=== PATIENT | male | born 2000 | race Caucasian/White ===

== ENCOUNTER 2021-09-16 14:54 | Emergency (ER) | payer MEDICAID, SELFPAY ==
[2021-09-16 14:55] VITALS: BP 170/82; PULSE 85; RESP 16; TEMP 36.1; O2SAT 97; BMI 28.8
--- NOTE | 2021-09-16 15:28 | EDS_ITS ---
HPI HPI - Psych History of Present Illness Chief Complaint: Anxiety Narrative Narrative: 20-year-old male presenting with anxiety. He has a history of anxiety in the past. He was previously on Abilify, Prozac, guanfacine. He states he has not had these in a month and a half due to a falling out with his family and he came to [place] to live with his friend. He has not been able to get his medications from his home and states that they had a falling out in which he does not want to go back there. He states he called the counseling center who then transferred him to a psychiatric physician that told him he would need to go to the emergency room to have his medications filled. He is not homicidal or suicidal. He does admit to anxiety. [facility] Medical History Anxiety Depression Home Medications aripiprazole [Abilify] 20 mg PO QHS 09/16/21 [History Last Taken Unknown] aripiprazole [Abilify] 20 mg PO QHS #30 tab 09/16/21 [Rx Last Taken Unknown] fluoxetine 5 mg PO DAILY #30 cap 09/16/21 [Rx Last Taken Unknown] fluoxetine [Prozac] 5 mg PO DAILY 09/16/21 [History Last Taken Unknown] guanfacine 09/16/21 [History Last Taken Unknown] guanfacine 1 mg PO DAILY #30 tab 09/16/21 [Rx Last Taken Unknown] Allergy/AdvReac Type Severity Reaction Status Date / Time No Known Allergies Allergy Verified 09/16/21 14:58 Social History Smoking Status: Unknown if ever smoked ROS ROS ED Constitutional Constitutional ED: Denies chills or fever(s) Eyes Eyes: Denies blurry vision or change in vision ENT ENT ED: Denies rhinorrhea or sore throat Cardiovascular Cardiovascular: Denies chest pain or palpitations Respiratory/Chest Respiratory/Chest: Denies cough, dyspnea or sputum Gastrointestinal Gastrointestinal: Denies abdominal pain or nausea Genitourinary Genitourinary ED: Denies dysuria or hematuria Musculoskeletal Musculoskeletal: Denies arthralgias or myalgias Integumentary Denies Abrasions or rash Neurologic Neurologic: Denies headache(s) Psychiatric Psychiatric: Reports anxiety; Denies suicidal ideation or suicidal thoughts EXAM Physical Exam Const Vital Signs: 09/16/21 14:55 Temperature 96.9 F L Temperature Source Temporal Pulse Rate 85 Respiratory Rate 16 Blood Pressure 170/82 H Blood Pressure Mean 111 Pulse Ox 97 Oxygen Delivery Method Room Air Positive well nourished General Appearance ED: NAD; Negative for pallor HEENT Reports moist mucous membranes normocephalic and atraumatic Eyes PERRL and EOMs intact bilaterally Cardio Rate: regular rate Rhythm: regular rhythm Extremity normal to inspection Psych Appearance: grossly normal and appropriate Speech: normal speech Skin General Skin Exam: Negative for jaundice or pallor Rashes: no rashes MDM MDM MDM Narrative Medical decision making narrative: Patient presenting with mild anxiety and d esire for refill of his previous medications that he was on. He states he was referred to the ER to start these medications by the counseling center. He is not suicidal homicidal. I did get clinical social work aide involved in making confirm his prescriptions. They stated that the counseling center could not get him prescriptions in a timely manner and that it could need to be established first. After confirming his previous prescription I did refill him. He is to follow- up with his psychiatrist in [place] next month. I did give him a 30-day supply. He is given return precautions. Impression: 1. Anxiety 2 medication refill Discharge Plan Triage Chief Complaint: Anxiety ED Provider: Bakari Juarez Dx/Rx/DC Orders Prescriptions: New aripiprazole [Abilify] 20 mg tablet 20 mg PO QHS Qty: 30 RF: 0 guanfacine 1 mg tablet 1 mg PO DAILY Qty: 30 RF: 0 fluoxetine 10 mg capsule 5 mg PO DAILY Qty: 30 RF: 0 No Action fluoxetine [Prozac] 10 mg Capsule 5 mg PO DAILY RF: 0 aripiprazole [Abilify] 20 mg Tablet 20 mg PO QHS RF: 0 guanfacine RF: 0 Primary Care Provider: Care Physician,No Primary Referrals: Care Physician,No Primary [Primary Care Provider] - Disposition Disposition: Home, Self Care
--- NOTE | 2021-09-16 15:37 | CM.ED ---
SOCIAL WORK Referral Source: Dr. Juarez Reason for Consult: Anxiety-requesting medications Patient presents to ER reporting spoke with [facility]. Patient states has been off medications and needs them refilled. Patient states has appointment with [facility] on October 10 with Tristan Acuna. Patient states in the process of getting set up with primary care as well due to being new to this area. Patient states was previously on Abilify 20mg, Prozac 5mg, and guanfacine. Patient reports prior pharmacy was [facility] in [place], [place]. Patient does not remember dosage for guanfacine. This worker called [facility] to confirm dosages for medications and updated Dr. Juarez. Dr. Juarez reports will fill patient's prescriptions for 1 month until follow up with [facility]. Plan: Home with intake appointments already scheduled with [facility] Tico Martin MSW, BLOOD BANK MANAGER
== END 2021-09-16 16:12 | disposition home or self-care (01) ==
PROVIDERS: Emergency Provider Student in an Organized Health Care Education/Training Program
DX: F41.9 Anxiety disorder, unspecified (principal); Z76.0 Encounter for issue of repeat prescription; F32.9 Major depressive disorder, single episode, unspecified; Z79.899 Other long term (current) drug therapy
CPT/HCPCS: 99282

== ENCOUNTER 2023-09-29 18:14 | Emergency (ER) | payer MEDICAID, SELFPAY ==
[2023-09-29 18:15] VITALS: BP 153/107; PULSE 100; RESP 17; TEMP 36.4; O2SAT 98; BMI 34.4
--- NOTE | 2023-09-29 19:03 | ED.VIS.DYS ---
HPI History of Present Illness Chief Complaint: Cold Sx [facility] Medical History Anxiety Depression Home Medications aripiprazole 20 mg tablet (Abilify) 20 mg PO QHS 09/16/21 [History Last Taken Unknown] aripiprazole 20 mg tablet (Abilify) 20 mg PO QHS #30 tabs 09/16/21 [Rx Last Taken Unknown] fluoxetine 10 mg capsule 5 mg (1/2 x 10 mg) PO DAILY #30 caps 09/16/21 [Rx Last Taken Unknown] fluoxetine 10 mg capsule (Prozac) 5 mg PO DAILY 09/16/21 [History Last Taken Unknown] guanfacine 09/16/21 [History Last Taken Unknown] guanfacine 1 mg tablet 1 mg PO DAILY #30 tabs 09/16/21 [Rx Last Taken Unknown] amoxicillin 875 mg-potassium clavulanate 125 mg tablet 1 tab PO BID #14 tabs 09/29/23 [Rx Last Taken Unknown] Allergy/AdvReac Type Severity Reaction Status Date / Time No Known Allergies Allergy Verified 09/29/23 18:15 Social History Smoking Status: Unknown if ever smoked EXAM Physical Exam Const Vital Signs: 09/29/23 18:15 Temperature 97.5 F L Temperature Source Temporal Pulse Rate 100 Respiratory Rate 17 Blood Pressure 153/107 H Blood Pressure Mean 122 Pulse Ox 98 Oxygen Delivery Method Room Air MDM MDM MDM Narrative Medical decision making narrative: HISTORY OF PRESENT ILLNESS: 22-year-old male here with concern for cold symptoms. No shortness of breath, achy runny nose and cough. Notes his significant other recently was diagnosed with COVID. The patient denies recent surgery in the last 4 weeks or immobilization in the last 3 days, denies previous diagnosis of DVT or PE, hemoptysis, unilateral leg swelling or malignancy with treatment the last 6 months or palliative. No estrogen use noted. REVIEW OF SYSTEMS: Pertinent positives: Myalgias, shortness of breath Pertinent negatives: Chest pain PHYSICAL EXAM: Nursing triage notes reviewed, Vital signs reviewed Constitutional: please see mdm HENT: MMM Eyes: Pupils equal round and reactive to light, Extraocular muscles intact Neck: No stridor, no JVD, full neck ROM Lungs: Clear to auscultation, No wheezing or rales. No increased work of breathing, no conversational dyspnea, no accessory muscle use, no nasal flaring. No respiratory distress noted Heart: Regular rate and rhythm, No murmurs, No rubs and No gallops, 2+ distal pulses (radial, femoral, posterior tibial) in all extremities Abdomen: Soft, there is no tenderness, rigidity, rebound or guarding, no obvious peritoneal signs, no palpable pulsatile abdominal masses, no auscultated abdominal bruit : No CVAT Extremities: No edema Neuro: No focal neurological deficits, cranial nerves II through XII intact, 5/5 strength in all extremities. Intact sensation to light touch in all extremities, 2+ reflexes bilateral patella tendons. Normal gait. No ataxia. Skin: No rash or lesions noted MEDICAL DECISION MAKING: Chief Complaint: Shortness breath, cough, viral symptoms External records reviewed: No recent advanced imaging of the chest noted Factors affecting care: none Social determinants of health: none History obtained from others: none Consults: none MDM Narrative: She was hemodynamically stable, afebrile, nontoxic-appearing. Exam without focal abnormalities. I considered the following differential diagnosis: COVID, flu, pneumonia ALL IMAGES (IF OBTAINED) HAVE BEEN PERSONALLY REVIEWED AND INTERPRETED BY MYSELF. I have personally reviewed the patient's chest x-ray. Chest x-ray bilateral atelectasis versus infiltrate. Will prescribe antibiotics. The plan is to give antibiotics for community acquired pneumonia. COVID and flu are negative. The patient and/or family, caregivers express understanding. The patient and/or family, caregivers agrees with the plan. Shared decision making: I will have a discussion with the patient and or visitors regarding risk/benefits of further testing or admission. They will be made aware of of the risk/benefits inherent in this decision they will be given the opportunity to voice understanding. Total critical care time today provided was at least 0 minutes. This excludes separately billable procedures. Critical care time (if documented) is secondary to the patient having high probability of clinically significant/life threatening deterioration in the patient's condition which required my urgent intervention. Impression: 1. Community-acquired pneumonia Dispo: discharge home Radiography Diagnostic Testing: Clinical Impression(s) from Imaging Studies Chest X-Ray 09/29/23 19:12 IMPRESSION: Incomplete expansion of lungs. Possible mild atelectasis or infiltrates of the lung bases. Electronically Signed: Jose West MD at 20:01 EST , Discharge Plan Triage Chief Complaint: Cold Sx ED Provider: Kt Mcclelland Dx/Rx/DC Orders Instructions: Treating Pneumonia Prescriptions: New amoxicillin-pot clavulanate 875-125 mg tablet 1 tab PO BID Qty: 14 0RF No Action fluoxetine [Prozac] 10 mg Capsule 5 mg PO DAILY aripiprazole [Abilify] 20 mg Tablet 20 mg PO QHS guanfacine aripiprazole [Abilify] 20 mg tablet 20 mg PO QHS Qty: 30 0RF guanfacine 1 mg tablet 1 mg PO DAILY Qty: 30 0RF fluoxetine 10 mg capsule 5 mg PO DAILY Qty: 30 0RF Primary Care Provider: Care Physician,No Primary Referrals: Lebron Maldonado MD [Med Staff - Wine Pasteurizer] - Activity Restrictions/Additional Instructions: Thank you for trusting us with your care today! Please take Tylenol (2 pills, 650 mg), ibuprofen (2 pills, 400 mg) every 6 hours as needed for pain and fever control. Please take antibiotics until course is complete. Please return to the emergency department if your symptoms change or worsen. Specifically develop worsening shortness of breath or cannot tolerate antibiotics by mouth. Please follow with your primary care physician for further outpatient evaluation and management. Disposition Disposition: Home, Self Care Discharge Date/Time: 09/29/23 21:23
--- NOTE | 2023-09-29 19:12 | RAD_ITS ---
STUDY: X-RAY CHEST REASON FOR EXAM: Male, 22 years old. SOB, cough r/o PNA TECHNIQUE: Frontal and lateral views of the chest. COMPARISON: None. FINDINGS: Incomplete expansion of lungs. Probable mild atelectasis in both lung bases. Mild infiltrates are not excluded. No effusions. Normal size heart. Normal mediastinum and edward. Normal visualized pulmonary arteries. Normal visualized aortic arch and descending thoracic aorta. Normal visualized thoracic spine. Normal visualized ribs, clavicles, and shoulders. There is no demonstrated abnormality of the visualized soft tissue structures of the upper abdomen. RAD/Chest PA and Lateral IMPRESSION: Incomplete expansion of lungs. Possible mild atelectasis or infiltrates of the lung bases. Electronically Signed: Jose West MD at 20:01 EST ,
[2023-09-29] MEDS: Amox/Clavulanate 875 MG Tablet PO (21:14)
== END 2023-09-29 21:23 | disposition home or self-care (01) ==
PROVIDERS: Emergency Provider Emergency Medicine; Visit Provider Emergency Medicine
DX: J18.9 Pneumonia, unspecified organism (principal); Z11.52 Encounter for screening for COVID-19
CPT/HCPCS: 71046; 87428; 99282

== ENCOUNTER 2024-05-14 16:18 | Emergency (ER) | payer MEDICAID, SELFPAY ==
[2024-05-14 16:19] VITALS: PULSE 70; RESP 18; TEMP 36.4; O2SAT 99; BMI 31.9
--- NOTE | 2024-05-14 16:42 | EDS_ITS ---
HPI HPI - Psych History of Present Illness Chief Complaint: Mental Health Detail of Chief Complaint: Depression and anxiety Informant: patient Narrative Narrative: Patient presents to the emergency department complaint of depression and anxiety. Patient states that over the last 2 weeks his mental health has deteriorated. 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 He also his boyfriend's been telling him to kill himself and do a right. Patient states that a few days ago he had some thoughts of wanting to harm himself but did not act on it. Patient states that he used to see a counselor but his boyfriend stopped taking him and no longer has a counselor that he sees. Patient used to be on Pristiq but was taken off of that several months ago and he had been doing relatively well until about 2 weeks ago. Now he is got decreased appetite and decreased motivation. Not actively suicidal or homicidal. [facility] Medical History (Updated 05/14/24 @ 19:[address] Mimi Vargas, ) PTSD (post-traumatic stress disorder) Anxiety Depression Home Medications ?Medication ?Instructions ?Recorded ?Last Taken ?Type aripiprazole 20 mg tablet (Abilify) 20 mg PO QHS 09/16/21 Unknown History aripiprazole 20 mg tablet (Abilify) 20 mg PO QHS #30 tabs 09/16/21 Unknown Rx fluoxetine 10 mg capsule 5 mg (1/2 x 10 mg) PO DAILY #30 09/16/21 Unknown Rx caps fluoxetine 10 mg capsule (Prozac) 5 mg PO DAILY 09/16/21 Unknown History guanfacine 09/16/21 Unknown History guanfacine 1 mg tablet 1 mg PO DAILY #30 tabs 09/16/21 Unknown Rx amoxicillin 875 mg-potassium 1 tab PO BID #14 tabs 09/29/23 Unknown Rx clavulanate 125 mg tablet Allergy/AdvReac Type Severity Reaction Status Date / Time No Known Allergies Allergy Verified 05/14/24 16:19 Social History Smoking Status: Never smoker ROS ROS ED Review of Systems ROS Unobtainable: other Constitutional Constitutional ED: Reports lethargy; Denies chills, fever(s), sweats or weight loss Eyes Eyes: Denies blurry vision, change in vision or diplopia ENT ENT ED: Denies rhinorrhea or sore throat Cardiovascular Cardiovascular: Denies chest pain, orthopnea or racing heartbeat Respiratory/Chest Respiratory/Chest: Denies cough, dyspnea, dyspnea on exertion, orthopnea or sputum Gastrointestinal Gastrointestinal: Denies abdominal pain, diarrhea, nausea or vomiting Genitourinary Genitourinary ED: Denies dysuria, hematuria or urinary frequency Musculoskeletal Musculoskeletal: Denies arthralgias, back pain, myalgias or neck pain Integumentary Denies abscess, Abrasions or rash Neurologic Neurologic: Denies headache(s) or weakness Psychiatric Psychiatric: Reports anxiety, depression and suicidal thoughts Endocrine Endocrinology: Denies polydipsia, polyphagia or polyuria Hematologic/Lymphatic Hematologic/Lymphatic: Denies easy bleeding, easy bruising or lymphadenopathy Allergic/Immunologic Allergic/Immunologic ED: Denies mouth swelling, tongue swelling or urticaria EXAM Physical Exam Const Vital Signs: 05/14/24 16:19 Temperature 97.6 F L Temperature Source Temporal Pulse Rate 70 Respiratory Rate 18 Pulse Ox 99 Oxygen Delivery Method Room Air Positive well nourished and well developed General Appearance ED: well developed and NAD HEENT Reports TM's clear and moist mucous membranes normocephalic and atraumatic; Negative for trauma or tenderness Tympanic Membrane ED: Yes TM's clear Eyes PERRL and EOMs intact bilaterally General Eye ED: Negative for pale conjunctiva or scleral icterus Neck no lymphadenopathy, supple and no JVD General: Negative for tenderness Chest Wall inspection of chest normal and palpation of chest normal Chest: Negative for tenderness Resp normal respiratory effort and clear to auscultation bilaterally Effort and Inspection: Negative for respiratory distress or pain with movement Auscultation: Negative for rhonchi, wheezes or diminished lung sounds Cardio regular rate, regular rhythm, S1 normal heart sound, S2 normal heart sound and no murmurs Peripheral Pulses: pulses 2+ throughout GI normal to inspection, nondistended, normoactive bowel sounds, soft to palpation, non-tender, non-distended and no masses Back/Spine no CVA tenderness and no thoracic nor lumbar tenderness Extremity normal to inspection General Extremety ED: Negative for edema General Extremity: Negative for edema Neuro oriented x3, CN's II-XII intact bilaterally, no sensory deficits noted and gait normal Sensorium / Orientation: awake, alert, oriented to person, oriented to place and oriented to time Motor Exam: strength 5/5 throughout and strength abnormal Psych mental status grossly normal Skin no rashes or lesions noted and no wounds MDM MDM MDM Narrative Medical decision making narrative: Patient presents the emergency department with complaint of feeling depressed and anxious and declining mental health over the last 2 weeks. No active suicidal thoughts or homicidal thoughts. Patient had CBC with differential obtained that was normal. Chemistries unremarkable. Alcohol was negative. Toxicology screen pending. I did have patient evaluated by social media intern. At this time it is felt that he can contract for safety and can get set up again with outpatient services. Patient comfortable with plan. Will discharge to home in stable condition and advised to follow-up plan according to social media intern Lab Data Attestation: I reviewed the patient's lab results. Labs: Laboratory Results - last 24 hr 05/14/24 16:50 WBC 7.4 RBC 5.35 Hgb 15.6 Hct 47.2 MCV 88.2 MCH 29.2 MCHC 33.1 RDW Std Deviation 39.5 RDW Coeff of Loretta 12.3 Plt Count 202 MPV 11.9 Immature Gran % (Auto) 1.300 H Neut % (Auto) 66.1 Lymph % (Auto) 23.9 [place] % (Auto) 7.2 Eos % (Auto) 0.8 Baso % (Auto) 0.7 Absolute Neuts (auto) 4.9 Absolute Lymphs (auto) 1.77 Nucleated RBC % 0 Sodium 137 Potassium 3.7 Chloride 107 Carbon Dioxide 24.0 Anion Gap 6 BUN 11 Creatinine 0.79 Estim Creat Clear Calc 179.96 Est GFR (MDRD) Af Amer 157 Est GFR (MDRD) Non-Af 130 BUN/Creatinine Ratio 13.9 Glucose 108 H Calcium 9.3 Ethyl Alcohol < 3.0 Discharge Plan Triage Chief Complaint: Mental Health ED Provider: Mimi Vargas Dx/Rx/DC Orders Clinical Impression: Depression, Anxiety Instructions: ED Anxiety Reaction, ED Depression Prescriptions: No Action fluoxetine [Prozac] 10 mg Capsule 5 mg PO DAILY aripiprazole [Abilify] 20 mg Tablet 20 mg PO QHS guanfacine aripiprazole [Abilify] 20 mg tablet 20 mg PO QHS Qty: 30 0RF guanfacine 1 mg tablet 1 mg PO DAILY Qty: 30 0RF fluoxetine 10 mg capsule 5 mg PO DAILY Qty: 30 0RF amoxicillin-pot clavulanate 875-125 mg tablet 1 tab PO BID Qty: 14 0RF Primary Care Provider: Care Physician,No Primary Referrals: Care Physician,No Primary [Primary Care Provider] - Activity Restrictions/Additional Instructions: Follow-up with your counselor and follow plan discussed with social media intern. Please return if increased depression or thoughts of self-harm or condition should worsen anyway Print Language: Faroese Disposition Disposition: Home, Self Care
[2024-05-14 16:57] LABS: Absolute Lymphocyte Count 1.77 X10^3/uL (0.83-4.51); Absolute Neutrophil Count 4.9 X10^3/uL (2.0-7.7); Basophil# 0.05 X10^3/uL; Basophil% 0.7 % (0-1); Eosinophil# 0.06 X10^3/uL; Eosinophils% 0.8 % (0-5); Hematocrit 47.2 % (40-54); Hemoglobin 15.6 g/dL (13.0-16.5); Lymphocyte # 1.77 X10^3/ul (0.83-4.51); Lymphocyte % 23.9 % (19-41); Mean Corp Hgb Conc 33.1 g/dL (32-36); Mean Corpuscular Hgb 29.2 pg (27.0-32.0); Mean Corpuscular Volume 88.2 fL (80-94); Mean Platelet Vol. 11.9 fl (6.2-12.0); Monocyte# 0.53 X10^3/uL; Monocyte% 7.2 % (0-10); NRBC Flagged by Analyzer 0 % (0-5); Neutrophil % 66.1 % (47-70); Platelet Count 202 K/mm3 (150-450); RBC Distribution Width CV 12.3 % (11.6-14.6); RBC Distribution Width SD 39.5 fl (35.1-43.9); Red Blood Count 5.35 M/mm3 (4.6-6.2); White Blood Count 7.4 K/mm3 (4.4-11.0)
[2024-05-14 17:09] LABS: Alcohol, Blood (Medical)-Serum < 3.0 mg/dL
[2024-05-14 17:10] LABS: Anion Gap 6 (5-15); BUN 11 mg/dL (7-18); BUN/Creat Ratio 13.9 RATIO (10-20); Calcium,Total 9.3 mg/dL (8.5-10.1); Chloride 107 mmol/L (98-107); Creatinine, Serum 0.79 mg/dL (0.70-1.30); EST Glomerular Filtration Rate 130 mL/min (>60); Est Glom Filt Rate - Afr Amer 157 mL/min (>60); Estimated Creatinine Clearance 179.96 ml/min; Glucose 108 mg/dL (74-106); Potassium 3.7 mmol/L (3.5-5.1); Sodium Level 137 mmol/L (136-145)
--- NOTE | 2024-05-14 18:10 | NURSING ---
LITHOGRAPHIC PRESS OPERATOR IN ROOM
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
[2024-05-14 19:07] VITALS: BP 145/78; PULSE 63; RESP 15; TEMP 36.5; O2SAT 98
[2024-05-14 19:18] LABS: Amphetamine Urine VISTA NEGATIVE (<1000 ng/mL); Barbiturate Urine VISTA NEGATIVE (< 200 ng/mL); Benzodiazepine Urine VISTA NEGATIVE (< 200 ng/mL); Cocaine Urine VISTA NEGATIVE (< 300 ng/mL); Ecstacy Urine VISTA NEGATIVE (< 500 ng/mL); Methadone Urine VISTA NEGATIVE (< 300 ng/mL); PCP Urine VISTA NEGATIVE (< 25 ng/mL); THC Urine VISTA NEGATIVE (< 50 ng/mL); Vista UDS pH Range 6
== END 2024-05-14 19:07 | disposition home or self-care (01) ==
PROVIDERS: Emergency Provider Emergency Medicine; Visit Provider Emergency Medicine
DX: F32.A Depression, unspecified (principal); F41.9 Anxiety disorder, unspecified
CPT/HCPCS: 80048; 80307; 82077; 85025; 99282